=== PATIENT | male | born 1970 | race Caucasian/White ===

== ENCOUNTER 2025-07-30 13:51 | Observation (INO) | payer BC, SELFPAY ==
--- NOTE | 2025-07-30 13:40 | W.PM.HP.N ---
Date of service: 07/30/25 Time of Service: 14:34 Assessment and Plan Assessment and plan (1) Ureteral stone with hydronephrosis: Status: Acute Assessment and plan: For urgent placement of ureteral stent as we have not been able to control his pain. He will then be given the opportunity to pass his stone spontaneously. If he is unable to pass his stone, we can consider an elective ureteroscopy down the road. History of Present Illness History of Present Illness Chief Complaint: Right ureteral stone Narrative: This is a 54-year-old gentleman who presented to an outlying emergency department today with an acute onset of right sided flank pain. He was found to have an obstructing right distal ureteral stone. He had no fevers or chills, but his pain could not be well-controlled medically. He was transferred here for placement of a ureteral stent to relieve his obstruction He has been prior to his regular history of kidney stones. He has not had any previous urologic surgery. He has no known metabolic abnormalities such as gout or hyperparathyroidism. Review of Systems Narrative: No fevers or chills No vision change or dysphasia Hyperglycemia but has not been diagnosed with diabetes Sleep apnea. Positive Covid test in ED at [facility] today. No shortness of breath, cough or hemoptysis No chest pain or palpitations Nausea. No vomiting, hepatitis, ulcers, jaundice No seizures, strokes or peripheral neuropathy On anticoagulants. Hx anemia No gout PFSH All Active Problems (Updated 07/30/25 @ 13:02 by Maximus Bennett MD) Ureteral stone with hydronephrosis (Acute) Medical History (Updated 07/30/25 @ 13:02 by Maximus Bennett MD) Anemia Restless leg syndrome History of cardioversion Ascending aortic aneurysm Sleep apnea Obesity Hyperglycemia H/O: HTN (hypertension) GERD (gastroesophageal reflux disease) Chronic kidney disease Cardiac tamponade after operative procedure Cardiomyopathy Atrial fibrillation Surgical History (Updated 07/30/25 @ 13:02 by Maximus Bennett MD) H/O aortic aneurysm repair H/O cardiac ablation Social History Smoking/Tobacco Use Status: Never Smoking risk assessment performed?: Yes Alcohol Intake: current Alcohol Intake frequency: a few times a week Drug use: Never Substance use type: does not use Additional [facility] Med[facility] Allergies and Home Medications Allergies Allergy/AdvReac Type Severity Reaction Status Date / Time levofloxacin Allergy Mild Unknown Verified 07/30/25 14:50 Home Medications Medication Instructions Recorded Confirmed Type apixaban 5 mg tablet (Eliquis) 5 mg PO BID 07/30/25 07/30/25 History aspirin 81 mg tablet 81 mg PO DAILY 07/30/25 07/30/25 History atorvastatin 40 mg tablet (Lipitor) 40 mg PO DAILY 07/30/25 07/30/25 History metformin 500 mg tablet 500 mg PO DAILY 07/30/25 07/30/25 History metoprolol tartrate 75 mg tablet 75 mg PO BID 07/30/25 07/30/25 History pantoprazole 40 mg tablet,delayed 40 mg PO DAILY 07/30/25 07/30/25 History release sacubitril 24 mg-valsartan 26 mg 1 tab PO BID 07/30/25 07/30/25 History tablet (Entresto) Exam Const General: uncomfortable Neck Neck: other (thick) Resp Effort & Inspection: normal respiratory effort Auscultation: clear to auscultation bilaterally Cardio Rate: regular rate Rhythm: regular rhythm GI Palpation: soft and no masses Neuro General: patient alert, patient awake and patient oriented x3 Time Spent Time spent with Patient: <40 minutes Time was spent: other
[2025-07-30 14:30] VITALS: BP 135/88; PULSE 81; RESP 16; TEMP 36.5; O2SAT 98
[2025-07-30] MEDS: Normal Saline Flush 10 ML SYR IV ×2 (14:45→14:55)
[2025-07-30] MEDS: Lactated Ringers 1,000 ML 80 ML IV (14:45)
--- NOTE | 2025-07-30 14:54 | W.ANESPRE ---
General Info Date of Service Date Performed: 07/30/25 Height: 5 ft 10 in Weight: 122.5 kg Body Mass Index (BMI): 38.7 Surgical Procedure: Operation Date: 07/30/25 14:10 Proposed Procedure Side Surgeon p Cystoscopy with Stent Insertion Right Maximus Bennett MD Meds Allergies and Home Medications Allergies Allergy/AdvReac Type Severity Reaction Status Date / Time levofloxacin Allergy Mild Unknown Verified 07/30/25 14:50 Home Medication Medication Instructions Recorded apixaban 5 mg tablet (Eliquis) 5 mg PO BID 07/30/25 aspirin 81 mg tablet 81 mg PO DAILY 07/30/25 atorvastatin 40 mg tablet (Lipitor) 40 mg PO DAILY 07/30/25 metformin 500 mg tablet 500 mg PO DAILY 07/30/25 metoprolol tartrate 75 mg tablet 75 mg PO BID 07/30/25 pantoprazole 40 mg tablet,delayed 40 mg PO DAILY 07/30/25 release sacubitril 24 mg-valsartan 26 mg 1 tab PO BID 07/30/25 tablet (Entresto) Current Visit Medications: Current Medications Generic Name Dose Route Start Last Admin Trade Name Freq PRN Reason Stop Dose Admin Ringer's Solution 1,000 mls @ 80 mls/hr 07/30/25 12:45 IV INFUSION SHASHI Cefazolin Sodium 3,000 mg/ 100 mls @ 200 mls/hr 07/30/25 14:00 Sodium Chloride IVPB PREOP SHASHI IV Miscellaneous Supplies 1 each 07/30/25 06:00 Iv Access IV 07/30/25 23:59 DIRECTED SHASHI Sodium Chloride 0 ml 07/30/25 06:00 Normal Saline Flush 10 Ml Syr IV 07/30/25 23:59 PRN PRN Sodium Chloride 0 ml 07/30/25 06:00 Normal Saline 10 Ml Vial IJ 07/30/25 23:59 DIRECTED PRN Sterile Water 0 ml 07/30/25 06:00 Water,Injection,Sterile 10 Ml Vial IJ 07/30/25 23:59 DIRECTED PRN PFSH Active Problems Active Problems: Problem Status Onset Code Ureteral stone with hydronephrosis Acute N13.2 Medical History Medical History (Updated 07/30/25 @ 13:02 by Maximus Bennett MD) Anemia Restless leg syndrome History of cardioversion Ascending aortic aneurysm Sleep apnea Obesity Hyperglycemia H/O: HTN (hypertension) GERD (gastroesophageal reflux disease) Chronic kidney disease Cardiac tamponade after operative procedure Cardiomyopathy Atrial fibrillation Surgical History Surgical History (Updated 07/30/25 @ 13:02 by Maximus Bennett MD) H/O aortic aneurysm repair H/O cardiac ablation Tobacco Smoking/Tobacco Use Status: Never Alcohol Alcohol Intake: current Alcohol intake frequency: a few times a week Substance Use Substance use: Never Substance use type: does not use Vital Signs and Lab Results Vital Signs Most Recent Vital Signs in EMR: Most Recent Vital Signs Temp Pulse Resp BP Pulse Ox 36.5 C 81 16 135/88 98 07/30/25 14:30 07/30/25 14:30 07/30/25 14:30 07/30/25 14:30 07/30/25 14:30 Anesthesia Assessment and Plan Anesthesia History Personal History: No History of Anesthesia Complications Family History: No Family History of Anesthesia Complications Exercise Tolerance Exercise Tolerance: Metabolic Equivalents>4 Pertinent Negatives Pertinent Negatives: No Symptoms of GERD Cardiac & Pulmonary Exam Cardiac Exam: Heart Murmur Present (Murmur noted. ) Pulmonary Exam: Clear Bilateral Breath Sounds Implantable Cardiac Device Does patient have a Pacemaker or an ICD?: No Airway Exam Known Difficult Airway: No Mallampati Class: 3 Mouth Opening: Normal (> 3cm) Thyromental Distance: Greater than 3 cm Neck Range of Motion: Full ROM Neck Circumference: Thick Teeth Condition: Normal Dentition ASA Classification ASA Score: ASA 3 Emergency Case?: Yes NPO Status NPO Status: NPO Clears >2 hours, Solids >8 hours Anesthesia Plan Resuscitation Status: Full Code Anesthesia Technique: General Anesthesia Airway Planned: Natural Airway Monitors Used: Standard Monitors Preoperative Comments:: Transfer from [facility] ED to [facility] via private vehicle. Patient requires stenting per Dr. Bennett and should not wait. Incidental finding of COVID on random nasal swab at [facility] ED. to be masked during DSU visit. Plan for discharge to home today.
[2025-07-30] MEDS: ceFAZolin 3,000 MG in Normal Saline 100 ML 200 MG IVPB (16:01)
[2025-07-30 16:10] VITALS: BMI 38.7
[2025-07-30] MEDS: Omnipaque 300 MG/ML 50 ML BTL (16:14)
[2025-07-30] MEDS: Lidocaine 2% Jelly 11 ML SYR (16:15)
[2025-07-30 16:25] VITALS: BP 130/79; PULSE 81; RESP 18; TEMP 36.2; O2SAT 98
--- NOTE | 2025-07-30 16:25 | PDOC.DSDIS_ITS ---
Date of service: 07/30/25 Discharge Plan Disposition Patient Disposition: Home Condition: Stable Discharge Details Reason For Visit: ureteral stone with hydronephrosis Admit Date/Time: 07/30/25 13:51 Admit Provider: Maximus Bennett Attending Provider: Maximus Bennett Primary Care Provider: Segundo Priest Hospital Course Hospital Course: The patient was transferred from [facility] and brought to the operating room where he underwent a cystoscopy, retrograde pyelogram and placement of the right ureteral stent. After he recovered adequately, he was discharged to home. We will contact him to make arrangements for return trip to the operating room for stent removal and treatment of his ureteral stone if it has not already passed. Home Meds and New Rx's Prescriptions: New oxycodone 5 mg tablet 5 - 10 mg PO Q6H PRN (Reason: pain) Qty: 20 0RF Rx Instructions: may take along with tylenol and/or NSAIDs tamsulosin [Flomax] 0.4 mg capsule 0.4 mg PO DAILY Qty: 20 0RF No Action atorvastatin [Lipitor] 40 mg tablet 40 mg PO DAILY metformin 500 mg tablet 500 mg PO DAILY pantoprazole 40 mg tablet,delayed release (DR/EC) 40 mg PO DAILY aspirin 81 mg tablet 81 mg PO DAILY Eliquis 5 mg tablet 5 mg PO BID sacubitril-valsartan [Entresto] 24-26 mg tablet 1 tab PO BID metoprolol tartrate 75 mg tablet 75 mg PO BID Discharge Instructions Additional Instructions: You have a ureteral stent in place. While the stent is present, it is not unusual to see blood in the urine, urinate more frequently than usual or have some discomfort when you urinate. Your stone has not been removed. My office will make arrangements for a return trip to the operating room to remove both your ureteral stent and your stone (if it has not passed by itself). We will tell you when to stop your Eliquis before that procedure. If you do notice that you have passed your stone before your next surgery, please bring it along with you so that we can have it analyzed. Activity:: Activity as Tolerated Equipment/Supplies:: No Equipment Needed Diet:: As Tolerated Discharge Orders Discharge Orders: Discharge Order (Routine); Ordered 07/30/25 Ordered By: Maximus Bennett DS: Diagnosis Discharge Diagnosis (1) Ureteral stone with hydronephrosis: Status: Acute
--- NOTE | 2025-07-30 16:30 | DI.RAD_ITS ---
Exam(s) XR RETROGRADE IN OR EXAM: XR RETROGRADE IN OR CLINICAL HISTORY: Hydronephrosis with urinary obstruction TECHNIQUE: 2D and realtime digital imaging was performed. CONTRAST MATERIAL: Refer to procedure report. COMPARISON: No exams were available for comparison FINDINGS: Fluoroscopy was provided for Dr. Bennett during the performance of a retrograde evaluation of the renal collecting system. Please refer to the procedure report for complete details. Ka,r=3.85 mGy IMPRESSION: RADIATION DOSE DELIVERED: 0.0 0.0 0
--- NOTE | 2025-07-30 16:38 | ROE_ITS ---
Operative Note Operative Note PRE-OP DIAGNOSIS: Right ureteral stone POST-OP DIAGNOSIS: same PROCEDURE: cystoscopy, right retrograde pyelogram, insert right ureteral stent SURGEON: Maximus Bennett ANESTHESIA TYPE: Local By Surgeon and General:No Airway Refer to Anesthesia Record ESTIMATED BLOOD LOSS: 5 PATHOLOGY: none sent COMPLICATIONS: None Patient was transported to: same day Patient's condition: stable Implants: 4.8 turkish by 22 to 30 cm right ureteral stent Indications: This is a 54-year-old who presented to an outside emergency department with acute onset of right sided flank pain. He was found to have a small right distal ureteral stone. His pain could not be well-controlled with, so he was transferred here for for urgent stent placement to relieve his hydronephrosis. Findings: hydronephrotic drip Procedure Description: The patient was given IV antibiotics and brought to the operating room on 07/30/2025. After successful induction of general anesthesia without sedation, he was placed in the dorsal lithotomy position. His genitalia was prepped and draped. 2% Xylocaine jelly was instilled into the urethra to act as a local anesthetic. A 22 [place] rigid cystoscope was passed through the urethra into the bladder. The urethra and bladder were inspected using the 30 degree lens. The pendulous, bulbar and membranous urethra appeared normal with no strictures. The prostatic urethra showed minimal lateral lobe and no median lobe. The bladder neck was entered and the bladder mucosa was inspected. No stone was seen within the lumen of the bladder. Both ureteral orifices appeared normal in location, but the right orifice was quite a bit more edematous than the left. In fact, I was not able to pass a 5 [place] access catheter directly into the right ureteral orifice. I advanced a guidewire into the orifice and then advanced the access catheter over the guidewire. I then injected Omnipaque through the access catheter and outlined the upper ureter and collecting system. The collecting system and ureter were quite dilated. I then advanced the guidewire back through the lumen of the access catheter and removed the access catheter. I passed a 4.8 [place] variable length stent over the wire. The proximal end of the stent was curled within the renal pelvis and the distal end was curled within the bladder. The positioning of the stent was confirmed both fluoroscopically and cystoscopically. Once the ureteral stent was placed, a hydronephrotic drip was seen from the right kidney. The patient tolerated this procedure well with no complications. The bladder was emptied and the cystoscope was withdrawn. He was taken back to the day surgery unit in stable condition. Date of Procedure: 07/30/25
--- NOTE | 2025-07-30 16:38 | W.ANESPOSTOP ---
Postoperative Evaluation Date, Time and Location Date Performed: 07/30/25 Time Performed: 16:38 Patient Location: Day Surgery Unit Vital Signs Most Recent Imported Vital Signs: Most Recent Vital Signs Temp Pulse Resp BP Pulse Ox 36.2 C L 81 18 130/79 98 07/30/25 16:25 07/30/25 16:25 07/30/25 16:25 07/30/25 16:25 07/30/25 16:25 Pain Score Most Recent Pain Score: Most Recent Pain Score Pain Level 1 07/30/25 14:30 Assessment Mental Status: Awake (Alert & Oriented to Patient Baseline) Airway and Respiratory Function: Patent airway with normal (patient baseline) respiratory exam Cardiovascular Function: Hemodynamically Stable Hydration Status: Adequately Hydrated Nausea & Vomiting: No Nausea or Vomiting Pain: Pt. Denies Any Pain Peripheral Nerve Block: Patient did not receive a nerve block
[2025-07-30 16:49] VITALS: BP 131/85; PULSE 64; RESP 17; TEMP 36; O2SAT 97
[2025-07-30] MEDS: Phenazopyridine 200 MG TAB PO (17:01)
== END 2025-07-30 17:10 | disposition home or self-care (01) ==
PROVIDERS: Admitting Provider Urology; PCP Family Medicine; Visit Provider Urology
PROC: (CPT 52332; principal; 2025-07-30 14:00)
DX: N13.2 Hydronephrosis with renal and ureteral calculous obstruction (principal); D64.9 Anemia, unspecified; R73.9 Hyperglycemia, unspecified; I71.21 Aneurysm of the ascending aorta, without rupture; Z79.01 Long term (current) use of anticoagulants; I42.9 Cardiomyopathy, unspecified; I48.91 Unspecified atrial fibrillation; G25.81 Restless legs syndrome; K21.9 Gastro-esophageal reflux disease without esophagitis; G47.30 Sleep apnea, unspecified; E66.9 Obesity, unspecified; N18.9 Chronic kidney disease, unspecified; I12.9 Hypertensive chronic kidney disease with stage 1 through stage 4 chronic kidney disease, or unspecified chronic kidney disease
CPT/HCPCS: 52332; 74420; G0378; J0131; J0690; J2704; Q9967

== ENCOUNTER 2025-08-26 09:55 | Day surgery (SDC) | payer BC, SELFPAY ==
[2025-08-26] VITALS (12 sets, daily range): BP systolic 115–160; BP diastolic 73–97; PULSE 55–64; RESP 10–17; TEMP 36.2–36.7; O2SAT 93–98; BMI 38.0
[2025-08-26] MEDS: Lactated Ringers 1,000 ML 80 ML IV (10:33)
--- NOTE | 2025-08-26 11:30 | DI.RAD_ITS ---
Exam(s) XR RETROGRADE IN OR EXAM: XR RETROGRADE IN OR CLINICAL HISTORY: RIGHT URETERAL STONE TECHNIQUE: 2D and realtime digital imaging was performed. CONTRAST MATERIAL: Refer to procedure report. COMPARISON: No exams were available for comparison FINDINGS: Fluoroscopy was provided for Dr. Bennett during the performance of a retrograde evaluation of the renal collecting system. Please refer to the procedure report for complete details. Ka,r=3.9 mGy IMPRESSION: RADIATION DOSE DELIVERED: 0.0 0.0 0
--- NOTE | 2025-08-26 11:32 | W.ANESPRE ---
General Info Date of Service Date Performed: 08/26/25 Height: 5 ft 10 in Weight: 120.2 kg Body Mass Index (BMI): 38.0 Surgical Procedure: Operation Date: 08/26/25 11:25 Proposed Procedure Side Surgeon p Cystoscopy/Possible Laser/Ureteroscopy/ Removal of Stent Right Maximus Bennett MD Meds Allergies and Home Medications Allergies Allergy/AdvReac Type Severity Reaction Status Date / Time levofloxacin Allergy Mild Unknown Verified 08/22/25 14:17 Home Medication Medication Instructions Recorded apixaban 5 mg tablet (Eliquis) 5 mg PO BID 07/30/25 aspirin 81 mg tablet 81 mg PO DAILY 07/30/25 atorvastatin 40 mg tablet (Lipitor) 40 mg PO DAILY 07/30/25 metformin 500 mg tablet 500 mg PO DAILY 07/30/25 metoprolol tartrate 75 mg tablet 75 mg PO BID 07/30/25 oxycodone 5 mg tablet 5 - 10 mg (1 - 2 x 5 mg) PO Q6H 07/30/25 PRN pain #20 tabs pantoprazole 40 mg tablet,delayed 40 mg PO DAILY 07/30/25 release sacubitril 24 mg-valsartan 26 mg 1 tab PO BID 07/30/25 tablet (Entresto) tamsulosin 0.4 mg capsule See Rx Instructions .Route 08/09/25 .COMPLEX #30 caps Current Visit Medications: Current Medications Generic Name Dose Route Start Last Admin Trade Name Freq PRN Reason Stop Dose Admin Ringer's Solution 1,000 mls @ 80 mls/hr 08/26/25 06:00 08/26/25 10:33 IV 09/22/25 23:59 80 mls/hr INFUSION SHASHI Administration Cefazolin Sodium 3,000 mg/ 100 mls @ 200 mls/hr 08/26/25 06:00 Sodium Chloride IVPB 08/26/25 23:59 PREOP SHASHI IV Miscellaneous Supplies 1 each 08/26/25 06:00 Iv Access IV 09/22/25 23:59 DIRECTED SHASHI Sodium Chloride 0 ml 08/26/25 06:00 Normal Saline Flush 10 Ml Syr IV 09/22/25 23:59 PRN PRN Sodium Chloride 0 ml 08/26/25 06:00 Normal Saline 10 Ml Vial IJ 09/22/25 23:59 DIRECTED PRN Sterile Water 0 ml 08/26/25 06:00 Water,Injection,Sterile 10 Ml Vial IJ 09/22/25 23:59 DIRECTED PRN PFSH Active Problems Active Problems: Problem Status Onset Code Ureteral stone with hydronephrosis Acute N13.2 Medical History Medical History Anemia Restless leg syndrome History of cardioversion x8 Ascending aortic aneurysm Sleep apnea Obesity Hyperglycemia H/O: HTN (hypertension) GERD (gastroesophageal reflux disease) Chronic kidney disease Cardiac tamponade after operative procedure Per pt states this was after AAA Cardiomyopathy Atrial fibrillation Surgical History Surgical History H/O aortic aneurysm repair 12/2024 H/O cardiac ablation 2019 Tobacco Smoking/Tobacco Use Status: Never Passive smoking exposure: Yes Alcohol Alcohol Intake: current Alcohol intake frequency: a few times a week Substance Use Substance use: Never Substance use type: does not use Vital Signs and Lab Results Vital Signs Most Recent Vital Signs in EMR: Most Recent Vital Signs Temp Pulse Resp BP Pulse Ox 36.3 C L 60 16 156/97 H 98 08/26/25 10:10 08/26/25 10:10 08/26/25 10:10 08/26/25 10:10 08/26/25 10:10 Anesthesia Assessment and Plan Anesthesia History Personal History: No History of Anesthesia Complications Family History: No Family History of Anesthesia Complications Exercise Tolerance Exercise Tolerance: Metabolic Equivalents>4 Pertinent Negatives Pertinent Negatives: No Symptoms of GERD Cardiac & Pulmonary Exam Cardiac Exam: Normal S1/S2 Heart Sounds Pulmonary Exam: Clear Bilateral Breath Sounds Implantable Cardiac Device Does patient have a Pacemaker or an ICD?: No Airway Exam Known Difficult Airway: No Mallampati Class: 3 Mouth Opening: Normal (> 3cm) Thyromental Distance: Greater than 3 cm Neck Range of Motion: Full ROM Neck Circumference: Thick Teeth Condition: Normal Dentition ASA Classification ASA Score: ASA 2 Emergency Case?: No NPO Status NPO Status: NPO Clears >2 hours, Solids >8 hours Anesthesia Plan Resuscitation Status: Full Code Anesthesia Technique: General Anesthesia Airway Planned: LMA Monitors Used: Standard Monitors
--- NOTE | 2025-08-26 11:48 | W.PM.HP.N ---
Date of service: 08/26/25 Time of Service: 11:48 Assessment and Plan Assessment and plan (1) Ureteral stone with hydronephrosis: Status: Acute Assessment and plan: We will plan to remove his indwelling ureteral stent. We would do ureteroscopy and extract any remaining ureteral stone. History of Present Illness History of Present Illness Chief Complaint: Right ureteral stone Narrative: This is a 54-year-old gentleman who presented to an outside hospital with right sided renal colic. He was found to have a small right distal ureteral stone, but his symptoms could not be well-controlled. He was transferred here where we placed an urgent right ureteral stent. He comes back now for stent removal and ureteroscopy with possible extraction of any remaining ureteral stone. He has been having some gross hematuria and discomfort while the stent has been in place. He has not passed a stone as far as he is aware. Review of Systems Narrative: No fevers or chills No vision change or dysphasia No diabetes or thyroid dysfunction No shortness of breath, cough or hemoptysis Hx atrial fibrillation. No chest pain or palpitations GERD. No hepatitis, ulcers, jaundice No seizures, strokes or peripheral neuropathy On Eliquis routinely. No gout PFSH All Active Problems Ureteral stone with hydronephrosis (Acute) Medical History Anemia Restless leg syndrome History of cardioversion x8 Ascending aortic aneurysm Sleep apnea Obesity Hyperglycemia H/O: HTN (hypertension) GERD (gastroesophageal reflux disease) Chronic kidney disease Cardiac tamponade after operative procedure Per pt states this was after AAA Cardiomyopathy Atrial fibrillation Surgical History H/O aortic aneurysm repair 12/2024 H/O cardiac ablation 2019 Social History Smoking/Tobacco Use Status: Never Smoking risk assessment performed?: Yes Alcohol Intake: current Alcohol Intake frequency: a few times a week Drug use: Never Substance use type: does not use Housing: house Do you feel safe at home: Yes Do you feel safe in your relationship?: Yes Meds Allergies and Home Medications Allergies Allergy/AdvReac Type Severity Reaction Status Date / Time levofloxacin Allergy Mild Unknown Verified 08/22/25 14:17 Home Medications Medication Instructions Recorded Confirmed Type apixaban 5 mg tablet (Eliquis) 5 mg PO BID 07/30/25 08/26/25 History aspirin 81 mg tablet 81 mg PO DAILY 07/30/25 08/26/25 History atorvastatin 40 mg tablet (Lipitor) 40 mg PO DAILY 07/30/25 08/26/25 History metformin 500 mg tablet 500 mg PO DAILY 07/30/25 08/26/25 History metoprolol tartrate 75 mg tablet 75 mg PO BID 07/30/25 08/22/25 History oxycodone 5 mg tablet 5 - 10 mg (1 - 2 x 5 mg) PO Q6H 07/30/25 08/26/25 Rx PRN pain #20 tabs pantoprazole 40 mg tablet,delayed 40 mg PO DAILY 07/30/25 08/26/25 History release sacubitril 24 mg-valsartan 26 mg 1 tab PO BID 07/30/25 08/26/25 History tablet (Entresto) tamsulosin 0.4 mg capsule See Rx Instructions .Route 08/09/25 08/26/25 Rx .COMPLEX #30 caps Exam Const General: cooperative Neck Neck: supple Resp Effort & Inspection: normal respiratory effort Auscultation: clear to auscultation bilaterally Cardio Rate: regular rate Rhythm: regular rhythm GI Palpation: soft and no masses Neuro General: patient alert, patient awake and patient oriented x3 Results Last Vital Signs Temp 36.3 C L 08/26/25 10:10 Pulse 60 08/26/25 10:10 Resp 16 08/26/25 10:10 BP 156/97 H 08/26/25 10:10 Pulse Ox 98 08/26/25 10:10 Time Spent Time spent with Patient: <40 minutes Time was spent: other
[2025-08-26] MEDS: ceFAZolin 3,000 MG in Normal Saline 100 ML 200 MG IVPB (12:45)
[2025-08-26] MEDS: Lidocaine 2% Jelly 11 ML SYR (12:55)
[2025-08-26] MEDS: Omnipaque 300 MG/ML 50 ML BTL (12:55)
--- NOTE | 2025-08-26 13:13 | W.PM.DSUDISC ---
Date of service: 08/26/25 Discharge Plan Disposition Patient Disposition: Home Condition: Stable Discharge Details Reason For Visit: ureteroscopy Attending Provider: Maximus Bennett Primary Care Provider: Segundo Priest Recommendations for Follow Up Recommended tests to be ordered by follow up provider: renal ultrasound 6 weeks - order placed in outpatient orders Home Meds and New Rx's Prescriptions: No Action tamsulosin 0.4 mg capsule See Rx Instructions .ROUTE .COMPLEX Qty: 30 0RF Dose Instruction: TAKE ONE CAPSULE BY MOUTH EVERY DAY Rx Instructions: TAKE ONE CAPSULE BY MOUTH EVERY DAY atorvastatin [Lipitor] 40 mg tablet 40 mg PO DAILY metformin 500 mg tablet 500 mg PO DAILY pantoprazole 40 mg tablet,delayed release (DR/EC) 40 mg PO DAILY aspirin 81 mg tablet 81 mg PO DAILY Eliquis 5 mg tablet 5 mg PO BID sacubitril-valsartan [Entresto] 24-26 mg tablet 1 tab PO BID metoprolol tartrate 75 mg tablet 75 mg PO BID oxycodone 5 mg tablet 5 - 10 mg PO Q6H PRN (Reason: pain) Qty: 20 0RF Rx Instructions: may take along with tylenol and/or NSAIDs Discharge Instructions Additional Instructions: You may resume your Eliquis on 08/28/2025 (as long as you are not seeing blood in the urine). If you do still see blood in the urine, wait until you have no visible blood for 24 hours before starting the Eliquis. There is no need for you to strain your urine Your followup visit with us will be in 6 to 8 weeks - we will ask for a renal ultrasound ahead of time. the ultrasound can be done at [facility] if that is more convenient for you. Stand Alone Forms: Portal Information Activity:: Activity as Tolerated Shower/Bathe:: 24 hours Diet:: As Tolerated Discharge Orders Discharge Orders: Discharge Order (Routine); Ordered 08/26/25 Ordered By: Maximus Bennett DS: Diagnosis Discharge Diagnosis (1) Ureteral stone with hydronephrosis: Status: Acute
--- NOTE | 2025-08-26 13:21 | ROE_ITS ---
Operative Note Operative Note PRE-OP DIAGNOSIS: Right ureteral stone POST-OP DIAGNOSIS: same PROCEDURE: cystoscopy, remove right ureteral stent, right retrograde pyelogram, right ureteroscopy SURGEON: Maximus Bennett ANESTHESIA TYPE: Local By Surgeon and General LMA/ETT Refer to Anesthesia Record ESTIMATED BLOOD LOSS: 5 PATHOLOGY: none sent COMPLICATIONS: None Patient was transported to: PACU Patient's condition: stable Implants: none Indications: This is a 54-year-old gentleman who presented to an [facility] emergency department with right sided renal colic. He is found to have a 2 mm distal ureteral stone with hydronephrosis. His pain could not be well-controlled. He was transferred here for urgent placement of a ureteral stent. He returns now for stent removal and ureteroscopy with treatment of his stone if it is still present. The patient has not noticed any stone debris in his urine. Findings: no remaining stone in distal ureter Procedure Description: The patient was given IV antibiotics and brought to the operating room on 08/26/2025. After successful induction of general anesthesia, he was placed in the dorsal lithotomy position. His genitalia is prepped and draped. 2% Xylocaine jelly was instilled into the urethra. A 22 Italian rigid cystoscope was passed through the urethra into the bladder. The urethra and bladder were inspected with the 30 degree lens. The pendulous, bulbar and membranous urethra all appeared normal with no str ictures. The prostatic urethra showed mild lateral lobe enlargement but no significant median lobe. The bladder neck was entered and the bladder mucosa was inspected. The left ureteral orifice appeared normal. The right orifice had a stent protruding from it and significant edematous changes around the ureteral orifice. I grasped the stent with an alligator forceps and brought the stent to the level of the urethral meatus. I then passed a guidewire through the lumen of the stent and removed the stent leaving the wire in place. I then passed a dual-lumen catheter over the wire and positioned the catheter in the distal ureter. I injected Omnipaque through the second port of the dual- lumen catheter under fluoroscopic guidance. No filling defects were seen in the distal ureter. I then removed the dual-lumen catheter but left the wire in place as a safety wire. I passed a semirigid ureteroscope through the urethra into the bladder. I passed the scope up the right ureter to the level of the pelvic brim. No stones were identified. The scope was withdrawn. The guidewire was removed. The patient tolerated this procedure well with no complications. He was taken to the recovery room in stable condition. Date of Procedure: 08/26/25
--- NOTE | 2025-08-26 13:50 | W.ANESPOSTOP ---
Postoperative Evaluation Date, Time and Location Date Performed: 08/26/25 Time Performed: 13:50 Patient Location: Day Surgery Unit Vital Signs Most Recent Imported Vital Signs: Most Recent Vital Signs Temp Pulse Resp BP Pulse Ox 36.4 C L 55 L 16 130/88 95 08/26/25 13:38 08/26/25 13:38 08/26/25 13:38 08/26/25 13:38 08/26/25 13:38 Pain Score Most Recent Pain Score: Most Recent Pain Score Pain Level 0 08/26/25 13:38 Assessment Mental Status: Awake (Alert & Oriented to Patient Baseline) Airway and Respiratory Function: Patent airway with normal (patient baseline) respiratory exam Cardiovascular Function: Hemodynamically Stable Hydration Status: Adequately Hydrated Nausea & Vomiting: No Nausea or Vomiting Pain: Pt. Denies Any Pain Peripheral Nerve Block: Patient did not receive a nerve block
[2025-08-26] MEDS: Phenazopyridine 200 MG TAB PO (14:01)
[2025-08-26] MEDS: oxyCODONE 5 MG TAB PO (14:23)
== END 2025-08-26 15:06 | disposition home or self-care (01) ==
PROVIDERS: PCP Family Medicine; Visit Provider Urology
PROC: (CPT 52310; principal; 2025-08-26 11:15)
DX: N13.2 Hydronephrosis with renal and ureteral calculous obstruction (principal)
CPT/HCPCS: 52310; 74420; J0131; J0690; J1100; J2003; J2405; J2704; J3010; Q9967